=== PATIENT | male | born 1935 | race Caucasian/White ===

== ENCOUNTER → 2021-12-06 13:39 | Outpatient (BNVA) | payer MEDICARE, OTHER, SELFPAY | PROVIDERS: PCP Internal Medicine; Visit Provider Internal Medicine | DX: I25.10 Atherosclerotic heart disease of native coronary artery without angina pectoris (principal); I49.3 Ventricular premature depolarization; I10 Essential (primary) hypertension; E78.1 Pure hyperglyceridemia; E66.9 Obesity, unspecified; Z68.34 Body mass index [BMI] 34.0-34.9, adult; Z87.891 Personal history of nicotine dependence; Z79.82 Long term (current) use of aspirin | CPT/HCPCS: 99214 ==

== ENCOUNTER 2022-05-04 08:03 | Outpatient (CLI) | payer MEDICARE, OTHER, SELFPAY ==
--- NOTE | 2022-05-04 08:30 | MM_ITS ---
WS: [id number] DIAGNOSTIC BILATERAL DIGITAL BREAST TOMOSYNTHESIS MAMMOGRAPHY WITH CAD LEFT breast ultrasound, limited. HISTORY: PAINFUL LUMPY LEFT BREAST COMPARISON: None available. TECHNIQUE: Bilateral craniocaudad, mediolateral oblique, and mediolateral views are submitted with to moshema and JEN. Computer aided detection utilized. Breast composition: The breasts are almost entirely fatty. Focal area of asymmetry just posterior to the LEFT nipple. This asymmetry measures 2.6 x 1.8 cm and corresponds to the palpable abnormality. Th is is most typical for gynecomastia. Ultrasound to follow. LEFT breast ultrasound, limited. Ultrasound directed to the posterior LEFT nipple at the site of the palpable abnormality. Hypoechoic irregular mass posterior to the LEFT nipple. Mildly dendritic formation measures 1.7 x 2.6 x 0.9 cm. Most consistent with gynecomastia. MM/[place] [id number] IMPRESSION: BI-RADS: 2-Benign FOLLOW UP: See Report Palpable area in the LEFT breast corresponds to a focal area of gynecomastia. M ammographic and ultrasound imaging is concordant.
== END 2022-05-04 08:04 | disposition home or self-care (01) ==
LOC: RAD 08:03
PROVIDERS: PCP Internal Medicine; Visit Provider Internal Medicine
DX: N62 Hypertrophy of breast (principal); N64.4 Mastodynia
CPT/HCPCS: 76642; 77062

== ENCOUNTER → 2022-06-14 11:05 | Outpatient (BNVA) | payer MEDICARE, OTHER, SELFPAY | PROVIDERS: PCP Internal Medicine; Visit Provider Internal Medicine Cardiovascular Disease | DX: I49.3 Ventricular premature depolarization (principal); I25.2 Old myocardial infarction; I48.91 Unspecified atrial fibrillation; E78.1 Pure hyperglyceridemia; I10 Essential (primary) hypertension; I25.10 Atherosclerotic heart disease of native coronary artery without angina pectoris; E66.9 Obesity, unspecified; Z68.34 Body mass index [BMI] 34.0-34.9, adult; Z87.891 Personal history of nicotine dependence | CPT/HCPCS: 99213 ==

== ENCOUNTER → 2022-12-13 13:59 | Outpatient (BNVA) | payer MEDICARE, OTHER, SELFPAY | PROVIDERS: PCP Internal Medicine; Visit Provider Internal Medicine | DX: I25.10 Atherosclerotic heart disease of native coronary artery without angina pectoris (principal); I10 Essential (primary) hypertension; E78.1 Pure hyperglyceridemia; I49.3 Ventricular premature depolarization; E66.9 Obesity, unspecified; Z68.34 Body mass index [BMI] 34.0-34.9, adult; Z87.891 Personal history of nicotine dependence; Z79.82 Long term (current) use of aspirin | CPT/HCPCS: 99214 ==

== ENCOUNTER → 2023-06-13 14:50 | Outpatient (BNVA) | payer MEDICARE, OTHER, SELFPAY | PROVIDERS: PCP Internal Medicine; Visit Provider Internal Medicine | DX: E66.9 Obesity, unspecified (principal); Z68.34 Body mass index [BMI] 34.0-34.9, adult; I10 Essential (primary) hypertension; E78.1 Pure hyperglyceridemia; I25.10 Atherosclerotic heart disease of native coronary artery without angina pectoris; I49.3 Ventricular premature depolarization; Z87.891 Personal history of nicotine dependence | CPT/HCPCS: 99214 ==

== ENCOUNTER 2025-06-06 09:15 | Outpatient (CLI) | payer MEDICARE, OTHER, SELFPAY ==
--- NOTE | 2025-06-06 09:22 | CT_ITS ---
WS: [id number] CT ABDOMEN AND PELVIS WITH CONTRAST HISTORY: R KIDNEY MASS TECHNIQUE: Imaging performed of the abdomen and pelvis with IV contrast. Single phase imaging of the abdomen. Coronal and sagittal reformats are submitted. All CT scans at [facility] use at least one of these dose optimization techniques: automated exposure control; mA and/or kV adjustment per patient size (includes targeted exams where dose is matched to clinical indication); or iterative reconstruction. IV CONTRAST: Omnipaque 350; 100 mL IV. Oral contrast: No DLP: 3415.17 mGy.cm COMPARISON: None available. Lower thorax: Moderate elevation of the RIGHT hemidiaphragm. No pneumonia. Moderate cardiomegaly. Dense coronary artery calcifications or stents. No pericardial effusion. Mitral annular calcification. Small hiatal hernia. RIGHT breast gynecomastia. Liver/biliary system: Normal size with no intrahepatic dilatation. Gallbladder: Normally distended gallbladder with stones. No evidence for acute cholecystitis. Normal common bile duct. Pancreas: Normal size pancreas and pancreatic duct. No adjacent inflammation. Spleen: Normal size spleen. No mass or infarct. Adrenal glands: Normal RIGHT adrenal gland. LEFT adrenal nodule measures 1.5 x 2.1 cm. Low Hounsfield units consistent with an adenoma. Right kidney: Low normal size kidney at 9.2 cm. Nonobstructing renal calcification measures 2 mm in the lower pole. Mild cortical thinning with no hydronephrosis. Multiple well-circumscribed nonenhancing cysts with the RIGHT kidney. The largest posterior measures 3.3 x 2.6 cm. There are a few additional very tiny cortical hypodensities which cannot be characterized. No enhancing solid mass identified. Left kidney: Low normal size kidney at 9.1 cm. There is a large nonenhancing cyst measuring 10 x 10 mm from the lower pole. No solid component. There are a few additional very tiny, too small to characterize hypodensities along with cortical thinning. Mild perinephric stranding. Cluster of calcifications or a single irregular calcification measuring 1.2 x 1.1 cm in the central renal pelvis. No obstruction. Aorta: Moderate atherosclerosis with no aneurysm. Extensive calcification continues into the iliac arteries. 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 Ectatic RIGHT common iliac artery. Lymphadenopathy: None. Free fluid: None. GI tract: No obstruction. No appendicitis or diverticulitis. There are a few scattered diverticula which are not inflamed. Abdominal wall: Fat containing umbilical hernia. Pelvis: No free fluid in the pelvis. Fat-containing LEFT inguinal canal. Urinary bladder is well distended. There is very mild diffuse bladder wall thickening which is probably related to outlet obstruction. RIGHT lateral 11 mm urinary bladder diverticulum. Prostate is enlarged and heterogeneous. Bones: Degenerative scoliosis lumbar spine. CT/CT abdomen pelvis w con* [id number] IMPRESSION: 1. Kidneys are measuring low normal size with no obstruction. 2. Bilateral renal cysts as described above. No solid mass identified. There a re a few very tiny cortical hypodensities which cannot be characterized complet juan. 3. Small cluster of nonobstructing calcifications in the central LEFT renal pe lvis. Cluster measures 1.2 x 1.1 cm. 4. Advanced atherosclerosis aorta and iliac arteries. 5. 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 6. Cholelithiasis without acute cholecystitis. 7. Cardiomegaly. 8. Enlarged heterogeneous prostate gland.
[2025-06-06] MEDS: iohexol 350 mg/mL 500 mL Btl (per mL) IV (09:31)
[2025-06-06 09:44] LABS: Blood Urea Nitrogen 23 mg/dL (8-23)
== END 2025-06-06 09:16 | disposition home or self-care (01) ==
PROVIDERS: PCP Internal Medicine; Visit Provider Electrodiagnostic Medicine
DX: N28.89 Other specified disorders of kidney and ureter (principal); N28.1 Cyst of kidney, acquired; I70.0 Atherosclerosis of aorta; I70.8 Atherosclerosis of other arteries; I72.8 Aneurysm of other specified arteries; K80.20 Calculus of gallbladder without cholecystitis without obstruction; I51.7 Cardiomegaly; N40.0 Benign prostatic hyperplasia without lower urinary tract symptoms; R93.89 Abnormal findings on diagnostic imaging of other specified body structures; I34.81 Nonrheumatic mitral (valve) annulus calcification; K44.9 Diaphragmatic hernia without obstruction or gangrene; N62 Hypertrophy of breast; K57.90 Diverticulosis of intestine, part unspecified, without perforation or abscess without bleeding; K42.9 Umbilical hernia without obstruction or gangrene; N32.89 Other specified disorders of bladder; N32.3 Diverticulum of bladder; M41.86 Other forms of scoliosis, lumbar region
CPT/HCPCS: 74177; 82565; 84520